=== PATIENT | female | born 1940 ===

== ENCOUNTER 2018-06-30 09:08 | Outpatient (CLI) | payer OTHER | END 2018-06-30 09:09 | disposition home or self-care (01) | LOC: SONOGRAMA 09:08 → MAMO-SONO 09:30 | DX: E04.2 Nontoxic multinodular goiter (principal) ==

== ENCOUNTER 2019-04-28 08:28 | Outpatient (CLI) | payer OTHER | END 2019-04-28 08:33 | disposition home or self-care (01) | LOC: SONOGRAMA 08:28 | DX: E04.2 Nontoxic multinodular goiter (principal) ==